=== PATIENT | male | born 1980 | race Hispanic/Latino ===

== ENCOUNTER 2019-02-08 10:54 | Inpatient (IN) | payer OTHER, SELFPAY ==
[2019-02-08] MEDS ORDERED: Adacel (T-DAP) 0.5 ML SYRINGE ONE (11:05)
[2019-02-08] MEDS ORDERED: Ondansetron PF 4 MG/2 ML Vial ONE ×2 (11:05→15:05)
[2019-02-08] MEDS ORDERED: Morphine 4 MG/ML VIAL ONE (11:05)
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
[2019-02-08 11:22] LABS: #Basophils 0.1 thou/uL (0.0-0.2); #Eosinphils 0.1 thou/uL (0.0-0.7); #Lymphocytes 2.2 thou/uL (1.20-3.40); #Monocytes 0.3 thou/uL (0.11-0.59); #Neutrophils 3.1 thou/uL (1.40-6.50); %Basophils 0.9 % (0.0-1.0); %Eosinophils 1.4 % (0.0-10.0); %Lymphocytes 38.4 % (21.0-51.0); %Monocytes 5.6 % (0.0-10.0); %Neutrophils 53.7 % (42.0-75.0); Hemoglobin 15.3 g/dL (14.0-18.0); Mean Corpuscular HGB CONC 36.2 g/dL (32.0-36.0); Mean Corpuscular Hemoglobin 36.2 pg (27.0-31.0); Mean Platelet Volume 8.8 fL (7.4-10.4); Platelet Count 138 thou/uL (130-400); RBC Distribution Width 12.8 % (11.5-14.5); Red Blood Cell (RBC) Count 4.23 mill/uL (4.70-6.10); White Blood Cell (WBC) Count 5.8 thou/uL (4.8-10.8)
[2019-02-08 11:31] LABS: INR-International Normal Ratio 1.1; Prothrombin Time 13.9 SEC (12.0-14.7)
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
[2019-02-08 11:34] LABS: PTT 22.7 SEC (22.9-36.1)
[2019-02-08 11:42] LABS: ALT (SGPT) 141 U/L (8-55); AST (SGOT) 172 U/L (5-34); Albumin 4.3 g/dL (3.5-5.0); Alcohol 216 mg/dL (Less than 10); Alkaline Phosphatase 93 U/L (40-110); Anion Gap 24 mmol/L (10-20); BUN (Urea Nitrogen) 8 mg/dL (8.9-20.6); Bilirubin, Total 0.4 mg/dL (0.2-1.2); Calc. Creatinine Clearance 0 mL/min (70-130); Carbon Dioxide 18 mmol/L (22-29); Chloride 102 mmol/L (98-107); Estimated GFR-MDRD 86; Globulin 2.7 g/dL (2.4-3.5); Glucose 279 mg/dL (70-105); Lipase 43 U/L (8-78); Potassium 3.5 mmol/L (3.5-5.1); Sodium 140 mmol/L (136-145)
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
[2019-02-08] MEDS ORDERED: ISOVUE-370 76%-LOCM 1 ML ONE (11:47)
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
--- NOTE | 2019-02-08 11:52 | RAD ---
4 views of left elbow: 02/08/2019 COMPARISON: None HISTORY: Injury, trauma, pain FINDINGS: There is soft tissue swelling adjacent to the proximal left ulna with 2 subcutaneous foreig n bodies measuring up to 3 mm. No elbow joint effusion, displaced fracture, or evidence of dislocation. IMPRESSION: Soft tissue swelling and punctate radiopaque soft tissue foreign bodies as above. No asso ciated fracture or dislocation.
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
[2019-02-08] MEDS ORDERED: Lidocaine 1% w/Epinephrine 1:100K 20 ML VIAL ONE (12:35)
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
[2019-02-08] MEDS ORDERED: Neomycin-Polymyxin 1 ML AMP ONE (14:03)
[2019-02-08] MEDS ORDERED: Fentanyl 100 MCG/2 ML VIAL ONE ×2 (14:04→17:16)
[2019-02-08] MEDS ORDERED: HYDROmorphone 0.5 MG/0.5 ML SYRINGE ONE (14:05)
[2019-02-08] MEDS ORDERED: Esmolol 100 MG/10 ML VIAL ONE (15:05)
[2019-02-08] MEDS ORDERED: PHENYLEPHRINE-NS 100 MCG/ML 10 ML SYRINGE ONE (15:05)
[2019-02-08] MEDS ORDERED: PROPOFOL 200 MG/20 ML VIAL ONE (15:05)
[2019-02-08] MEDS ORDERED: Rocuronium Bromide 10 MG/ML (10ML VIAL) ONE (15:05)
[2019-02-08] MEDS ORDERED: Succinylcholine Chloride 20 MG/ML 10 ml SYRINGE FS ONE (15:05)
[2019-02-08] MEDS ORDERED: Lidocaine 1% PF 5 ML VIAL ONE (15:05)
[2019-02-08] MEDS ORDERED: Ketorolac Tromethamine 30 MG/ML VIAL ONE (15:05)
[2019-02-08] MEDS ORDERED: Glycopyrrolate 0.2 MG/ML 5 ML SYRINGE ONE (15:05)
[2019-02-08] MEDS ORDERED: ePHEDrine 50 MG/ML VIAL ONE (15:05)
[2019-02-08] MEDS ORDERED: Promethazine HCl 25 MG/ML VIAL SLOW IVP PRN (15:38)
[2019-02-08] MEDS ORDERED: Promethazine HCl 25 MG/ML VIAL IM PRN ×3 (15:38→17:26)
[2019-02-08] MEDS ORDERED: HYDROmorphone 2 MG/ML VIAL SLOW IVP PRN (15:38)
[2019-02-08] MEDS ORDERED: PACU-Morphine 4MG/ML VIAL SLOW IVP PRN (15:38)
[2019-02-08] MEDS ORDERED: Ondansetron HCl/PF 4 MG/2 ML Vial IVP PRN (15:38)
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
--- NOTE | 2019-02-08 16:20 | RAD ---
Exam: Intraoperative fluoroscopy Exposure: 20.5 seconds. 0.56 mGy Intraoperative fluoroscopy demonstrating internal fixation of a distal fibular fracture with a sidepl ate and multiple screws. Internal fixation of a medial malleolus fracture with two screws. IMPRESSION: Intraoperative fluoroscopy with internal fixation. Transcribed Date/Time: 02/08/2019 4:23 PM
[2019-02-08] MEDS ORDERED: Dextrose 5% in Water 1,000 ML IV PRN (17:26)
[2019-02-08] MEDS ORDERED: hydrALAZINE 20 MG/ML VIAL SLOW IVP PRN (17:26)
[2019-02-08] MEDS ORDERED: Ondansetron PF 4 MG/2 ML Vial IVP PRN (17:26)
[2019-02-08] MEDS ORDERED: Ondansetron ODT 4 MG TAB PO PRN (17:26)
[2019-02-08] MEDS ORDERED: traMADol HCl 50 MG TAB PO PRN (17:26)
[2019-02-08] MEDS ORDERED: Morphine 4 MG/ML VIAL SLOW IVP PRN (17:26)
[2019-02-08] MEDS ORDERED: Cyclobenzaprine 10 MG TAB PO PRN (17:26)
[2019-02-08] MEDS ORDERED: Dextrose 50% Abboject 50 ML SYRINGE SLOW IVP PRN (17:26)
[2019-02-08] MEDS: Acetaminophen 1,000 MG in Premix Bag 1 BAG IVPB SCH (20:59)
[2019-02-08] MEDS: Sodium Chloride 0.9% 1,000 ML IV SCH (21:00)
[2019-02-08] MEDS: Famotidine 20 MG TAB PO SCH (21:00)
[2019-02-08] MEDS: Morphine 2 MG/ML SYRINGE SLOW IVP PRN (21:08)
[2019-02-08 21:29] VITALS: BMI 31.1
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
[2019-02-08 23:21] LABS: Acetaminophen Less than 6.0 mcg/mL (10.0-30.0); Alcohol Less than 10 mg/dL (Less than 10); Salicylate Less than 8.0 mg/dL (15.0-30.0)
[2019-02-09] MEDS: Acetaminophen 1,000 MG in Premix Bag 1 BAG IVPB SCH ×3 (01:24→12:35)
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
[2019-02-09] MEDS: Morphine 2 MG/ML SYRINGE SLOW IVP PRN (04:42)
[2019-02-09] MEDS: Sodium Chloride 0.9% 1,000 ML IV SCH (05:23)
[2019-02-09 05:55] LABS: Phosphorus 2.9 mg/dL (2.3-4.7)
[2019-02-09 06:00] LABS: Anion Gap 15 mmol/L (10-20); BUN (Urea Nitrogen) 9 mg/dL (8.9-20.6); Calc. Creatinine Clearance 191 mL/min (70-130); Carbon Dioxide 22 mmol/L (22-29); Chloride 107 mmol/L (98-107); Estimated GFR-MDRD Greater than 90; Glucose 234 mg/dL (70-105); Magnesium 1.4 mg/dL (1.6-2.6); Potassium 3.7 mmol/L (3.5-5.1); Sodium 140 mmol/L (136-145)
[2019-02-09 06:05] LABS: #Lymphocytes 0.9 thou/uL (1.20-3.40); #Monocytes 0.5 thou/uL (0.11-0.59); #Neutrophils 3.3 thou/uL (1.40-6.50); %Basophils 0.5 % (0.0-1.0); %Eosinophils 0.3 % (0.0-10.0); %Lymphocytes 19.2 % (21.0-51.0); %Monocytes 11.1 % (0.0-10.0); %Neutrophils 68.9 % (42.0-75.0); Hemoglobin 12.1 g/dL (14.0-18.0); Mean Corpuscular Hemoglobin 34.2 pg (27.0-31.0); Mean Platelet Volume 8.8 fL (7.4-10.4); Platelet Count 113 thou/uL (130-400); Platelet Morphology Comment Appears Decreased; RBC Distribution Width 12.8 % (11.5-14.5); Red Blood Cell (RBC) Count 3.55 mill/uL (4.70-6.10); White Blood Cell (WBC) Count 4.8 thou/uL (4.8-10.8)
[2019-02-09] MEDS: traMADol HCl 50 MG TAB PO PRN ×3 (06:36→19:04)
[2019-02-09] MEDS: Oxazepam 10 MG CAP PO SCH ×3 (06:48→22:36)
[2019-02-09] MEDS ORDERED: Magnesium Sulfate 4 GM in Sodium Chloride 0.9% 250 ML 250 ML IVPB SCH (08:00)
[2019-02-09] MEDS ORDERED: FLU VACC QS2019-20(6MOS UP)/PF 60 MCG/0.5 ML SYRINGE IM ONE (09:00)
[2019-02-09] MEDS: Multivitamin W/ Minerals 1 TAB PO SCH (09:51)
[2019-02-09] MEDS: Folic Acid 1 MG TAB PO SCH (09:52)
[2019-02-09] MEDS: Thiamine 100 MG TAB PO SCH (09:52)
[2019-02-09] MEDS: Famotidine 20 MG TAB PO SCH ×2 (09:52→20:43)
[2019-02-09] MEDS: Insulin Regular 300 UNITS/3 ML VIAL SC PRN ×2 (11:23→20:43)
--- NOTE | 2019-02-09 12:08 | CT ---
PRELIMINARY REPORT/[facility]/EMERGENCY AFTER HOURS PROCEDURE: PROCEDURE INFORMATION: Exam: CT Head Without Contrast Exam date and time: 02/09/2019 5:03 AM Clinical history: 38 years old, male; Altered mental status/memory loss; Patient HX: F/u, S/P tbi TECHNIQUE: Imaging protocol: Computed tomography of the head without contrast. COMPARISON: No relevant prior studies available. FINDINGS: Brain: There is no evidence for acute stroke or bleed. There is global and diffuse parenchymal volume loss. There are scattered foci of decreased attenuation in the periventricular and subcortical white matter, nonspecific, but most consistent with chronic small vessel ischemic changes in patient of th is age. Midline shift: There is no hydrocephalus, midline shift, or acute extra-axial fluid collection. There is no sulcal effacement. Ventricles: Ventricles / cisterns / extra-axial spaces: Bones/joints: Bone: No acute fracture or displacement. Sinuses: No findings of acute sinusitis or suspicious sinus mass. Mastoid air cells: Visualized mastoid air cells are well aerated. Soft tissues: Left posterior parietal scalp hematoma and laceration. IMPRESSION: No visible acute subdural hematoma. Foci of increased attenuation noted on prior may reflect cortical veins. Chronic changes without evidence for acute, intracranial pathology. Left posterior parietal scalp hematoma and laceration. Thank you for allowing us to participate in the care of your patient. Dictated and Authenticated by: Lexus Mccartney MD 02/09/2019 5:18 AM Central Time ([place] & [place]) FINAL REPORT HEAD CT WITHOUT CONTRAST: Date: 02/09/19 COMPARISON: 02/08/19. HISTORY: Reevaluate extra-axial hemorrhage near the vertex seen on prior imaging. FINDINGS: I agree with the preliminary report by Jason. There is minimal linear density in the extra-axial space near the vertex. When compared to the prior examination, this density has decreased, suggesting improving small volume extra-axial hemorrhage. No new hemorrhage is seen. No midline shift or mass effect. Imaged paranasal sinuses/mastoid air cells are well aerated. No displaced calvarial fracture. There is posterior scalp swelling on the left near the vertex with foci of gas consistent with laceration. IMPRESSION: The conspicuity of nonspecific increased density within the extra-axial space near the vertex has dec reased. This suggests that there was small volume extra-axial blood on the prior examination which is resolving. No new hemorrhage. No mass effect or midline shift. POS: [facility]
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
[2019-02-09] MEDS: Acetaminophen 500 MG TAB PO SCH (20:48)
[2019-02-09] MEDS: Silver Sulfadiazine 1% Cream 50 GM JAR TOP SCH (22:36)
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
[2019-02-10] MEDS: Acetaminophen 500 MG TAB PO SCH ×3 (03:57→16:10)
[2019-02-10] MEDS: Oxazepam 10 MG CAP PO SCH (05:39)
[2019-02-10] MEDS: Insulin Regular 300 UNITS/3 ML VIAL SC PRN ×3 (05:43→16:10)
[2019-02-10 06:07] LABS: #Monocytes 0.4 thou/uL (0.11-0.59); #Neutrophils 3.3 thou/uL (1.40-6.50); %Basophils 0.3 % (0.0-1.0); %Eosinophils 0.6 % (0.0-10.0); %Lymphocytes 20.8 % (21.0-51.0); %Monocytes 7.9 % (0.0-10.0); %Neutrophils 70.5 % (42.0-75.0); Hemoglobin 11.6 g/dL (14.0-18.0); Mean Corpuscular HGB CONC 33.8 g/dL (32.0-36.0); Mean Corpuscular Hemoglobin 34.2 pg (27.0-31.0); Platelet Count 100 thou/uL (130-400); RBC Distribution Width 12.4 % (11.5-14.5); Red Blood Cell (RBC) Count 3.41 mill/uL (4.70-6.10); White Blood Cell (WBC) Count 4.7 thou/uL (4.8-10.8)
[2019-02-10] MEDS: Famotidine 20 MG TAB PO SCH (08:34)
[2019-02-10] MEDS: Multivitamin W/ Minerals 1 TAB PO SCH (08:34)
[2019-02-10] MEDS: Folic Acid 1 MG TAB PO SCH (08:34)
[2019-02-10] MEDS: Thiamine 100 MG TAB PO SCH (08:35)
[2019-02-10] MEDS: Silver Sulfadiazine 1% Cream 50 GM JAR TOP SCH (08:37)
[2019-02-10] MEDS ORDERED: METHYLPHENIDATE HCL 36 MG PO SCH (09:00)
--- NOTE | 2019-02-10 11:31 | RAD ---
Exam: Intraoperative fluoroscopy Exposure: 20.5 seconds. 0.56 mGy Intraoperative fluoroscopy demonstrating internal fixation of a distal fibular fracture with a sidepl ate and multiple screws. Internal fixation of a medial malleolus fracture with two screws. IMPRESSION: Intraoperative fluoroscopy with internal fixation. Transcribed Date/Time: 02/10/2019 11:30 AM
[2019-02-10 12:25] VITALS: TEMP 98.7
[2019-02-10 15:39] VITALS: BP 135/87
[2019-02-10] MEDS ORDERED: Aripiprazole 10 MG TAB PO SCH (21:00)
[2019-02-10] MEDS ORDERED: Escitalopram Oxalate 10 mg Tablet PO SCH (21:00)
[2019-02-10] MEDS ORDERED: Rosuvastatin 20 MG TAB PO SCH (21:00)
[2019-02-10] MEDS ORDERED: Losartan 25 MG TAB PO SCH (21:00)
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
== END 2019-02-10 18:13 | disposition home or self-care (01) | DRG 492 ==
LOC: ERS 10:54 → SDC 14:32 → ERS 15:26 → IMCU/EMU 18:56 → SURG A 02-09 21:21
PROVIDERS: ADMIT Specialist; ATTEND Specialist
PROC: 0QSG04Z Reposition Right Tibia with Internal Fixation Device, Open Approach (ICD-10-PCS; principal; 2019-02-08)
PROC: 0HQ0XZZ Repair Scalp Skin, External Approach (ICD-10-PCS; 2019-02-08)
PROC: 3E02340 Introduction of Influenza Vaccine into Muscle, Percutaneous Approach (ICD-10-PCS; 2019-02-08)
DX: S82.841B Displaced bimalleolar fracture of right lower leg, initial encounter for open fracture type I or II (principal); S06.370A Contusion, laceration, and hemorrhage of cerebellum without loss of consciousness, initial encounter; Z23 Encounter for immunization; F10.129 Alcohol abuse with intoxication, unspecified; S01.01XA Laceration without foreign body of scalp, initial encounter; E11.9 Type 2 diabetes mellitus without complications; I10 Essential (primary) hypertension; E78.5 Hyperlipidemia, unspecified; F41.9 Anxiety disorder, unspecified; F32.9 Major depressive disorder, single episode, unspecified; F90.9 Attention-deficit hyperactivity disorder, unspecified type; R40.2412 Glasgow coma scale score 13-15, at arrival to emergency department; V03.90XA Pedestrian on foot injured in collision with car, pick-up truck or van, unspecified whether traffic or nontraffic accident, initial encounter; Y92.410 Unspecified street and highway as the place of occurrence of the external cause; Z79.84 Long term (current) use of oral hypoglycemic drugs
CPT/HCPCS: 12002; 29515; 36415; 36416; 70450; 71045; 71260; 72125; 72170; 74177; 76000; 80048; 80053; 80307; 83605; 83690; 83735; 84100; 85025; 85610; 85730; 86850; 86900; 86901; 90471; 90686; 90715; 93005; 96361; 96374; 96375; C1713; G0008; G0390; J0131; J1170; J1815; J1885; J2001; J2270; J2405; J2704; J3010; J3475; J3490; J7050; Q9966